=== PATIENT | female | born 1980 | race Caucasian/White ===

== ENCOUNTER → 2017-02-09 | Outpatient (CLI) | payer BC | LOC: COL.RAD 07:22 | DX: D35.2 Benign neoplasm of pituitary gland (principal); E22.1 Hyperprolactinemia; O92.6 Galactorrhea; E03.9 Hypothyroidism, unspecified | CPT/HCPCS: A9585 ==

== ENCOUNTER → 2020-07-15 | Outpatient (CLI) | payer BC | LOC: MC.RAD 14:29 | DX: Z12.31 Encounter for screening mammogram for malignant neoplasm of breast (principal) ==